=== PATIENT | female | born 1995 | race Caucasian/White ===

== ENCOUNTER 2023-04-18 18:35 | Emergency (ER) | payer OTHER, SELFPAY ==
--- NOTE | 2023-04-18 18:37 | ED_ITS ---
HPI - General Adult General Chief complaint: Animal Bite Stated complaint: work inj post exposure rabies vaccine Time Seen by Provider: 04/18/23 19:45 Source: patient Mode of arrival: ambulatory Limitations: no limitations History of Present Illness HPI narrative: Patient reports on 03/31/2023 she sustained a scratch vs. 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 She recently found out that the cat tested positive for rabies. She consulted the estate attorney who recommended that she receive rabies vaccination for days 0/day 3. Within the past 2 years she did receive a for dose series of rabies vaccination due to a prior cat bite as well as an updated tetanus vaccine. She denies any immune compromising conditions. She is currently asymptomatic. Right hand is without any wounds or lesions. Related Data Allergies Allergy/AdvReac Type Severity Reaction Status Date / Time amoxicillin Allergy Hives Verified 04/18/23 18:39 Penicillins Allergy Hives Verified 04/18/23 18:39 Review of Systems Review of Systems: Yes all other systems are reviewed and are negative PMFSH Past Medical History Attestation statement: The following information was validated with the patient. Source: old records reviewed Social History Social History Advance Directives: No Advance Directives Information Provided: No Physical Exam ED Vital Signs: Vital Signs - 24 hr 04/18/23 18:39 04/18/23 19:51 Temperature 98.0 F 98.2 F Pulse Rate 72 80 Respiratory Rate 18 18 Blood Pressure 139/83 129/77 Pulse Oximetry 99 100 Oxygen Delivery Method Room Air Room Air BMI result Body Mass Index 28.4 Appearance: Alert.?Oriented to person, place and time. No acute distress.?Normal affect. Eyes: Pupils equal, round and reactive to light.? ENT: Pharynx normal.?? Neck: Normal inspection.? Neck supple.?? CVS: Heart sounds normal. Normal heart rate and rhythm.? Pulses normal.?? Respiratory: No respiratory distress.? Lung sounds clear to auscultation bilaterally?? Abdomen: Soft and non-tender. Normoactive bowel sounds. Skin: Skin warm and dry.? Normal skin color.? Normal skin turgor.?? Extremities: No lower extremity edema.? No calf ttp? Neuro: Moves all extremities spontaneously. Sensation intact bilaterally. CN II- XII intact. No focal neuro deficits. Ambulates with normal steady gait. Course Course Course Narrative: This is a rapid medical exam: Additional HPI, ROS, PE not included below will be deferred to primary provider. Patient is a 28-year-old female presenting to the emergency department presenting to the emergency for rabies vaccine after being scratched by a cat which later tested positive for rabies. 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 She spoke with the estate attorney who recommended a day 0 and day 3 vaccination, but stated patient does not need the immunoglobulin. This is consistent with [facility] guidelines. She reports she had a rabies vaccine within the last 1.5-2 years from another suspected exposure. Patient also reports Tdap was updated within the last 1.5-2 years. Plan: rabies vaccine ordered Medications Administered Discontinued Medications Generic Name Dose Route Start Last Admin Trade Name Freq PRN Reason Stop Dose Admin Rabies Vaccine Human Diploid Cell 1 ml 04/18/23 18:44 04/18/23 20:24 Rabies Vaccine, Human Diploid (Imovax) 1 Ml Vial IM 04/18/23 18:45 1 ml .ONCE ONE Administration Medical Decision Making Medical Decision Making MDM Narrative: Patient is a 28-year-old female who presents emergency department for rabies vaccination after a positive exposure as per HPI. Currently she is asymptomatic and her physical examination is benign. She has prior post exposure series of 4 dose vaccination and has no immune compromising conditions, therefore per guideline she will received 2 day post exposure vaccination series including the initial dose of rabies vaccination today and 2nd dose on day 3. Tetanus vaccination is up-to-date. Discussed strict return precautions. All questions were answered. Stable for discharge. Differential Diagnosis Differential Diagnoses: The differential diagnosis associated with the presentation includes (Rabies, rabies exposure, abrasion, animal bite) Admission/Observation Consideration of admission/observation: Escalation of care including admission/observation considered (See narrative above) Prescription Management I considered prescription management with: Other (Rabies vaccination) Discharge Plan Discharge Clinical Impression: Rabies contact Patient Disposition: Home, Self-Care Additional Instructions: Return to emergency department any new symptoms or concerns. Follow-up with short stay surgery to receive your repeat dosing of rabies vaccination. Referrals: David Rios DO, MD [Primary Care Provider] -
[2023-04-18 18:39] VITALS: BP 139/83; PULSE 72; RESP 18; TEMP 36.7; O2SAT 99; BMI 28.4
[2023-04-18 19:51] VITALS: BP 129/77; PULSE 80; RESP 18; TEMP 36.8; O2SAT 100
[2023-04-18] MEDS: Rabies Vaccine, Human Diploid (Imovax) 1 ML VIAL IM (20:24)
--- NOTE | 2023-04-18 20:26 | PC.NURSE ---
per pt, scratched ~ 2 weeks ago by cat at work, cat tested rabies positive. pt previously vaccinated for rabies. 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 order sent to short stay and pharmacy.
== END 2023-04-18 21:00 | disposition home or self-care (01) ==
PROVIDERS: Emergency Provider Emergency Medicine Emergency Medical Services; PCP Internal Medicine
DX: Z29.14 Encounter for prophylactic rabies immune globulin (principal); Z20.3 Contact with and (suspected) exposure to rabies
CPT/HCPCS: 90471; 90675; 99283; 99284

== ENCOUNTER 2023-04-22 15:14 | Outpatient (REF) | payer OTHER, SELFPAY ==
[2023-04-22 15:35] VITALS: BP 125/76; PULSE 93; RESP 18; TEMP 37.7; O2SAT 99; BMI 28.1
[2023-04-22] MEDS: Rabies Vaccine, Human Diploid (Imovax) 1 ML VIAL IM (15:55)
== END 2023-04-22 15:15 | disposition home or self-care (01) ==
LOC: HO.MDS 15:14
PROVIDERS: Visit Provider Nurse Practitioner Family
DX: Z20.3 Contact with and (suspected) exposure to rabies (principal)
CPT/HCPCS: 90471; 90675